=== PATIENT | male | born 1970 | race Caucasian/White ===

== ENCOUNTER 2023-01-29 08:58 | Emergency (ER) | payer BC, SELFPAY ==
--- NOTE | 2023-01-29 09:09 | ED.URI ---
HPI - URI/Sore Throat General Stated Complaint: SORE THROAT/EARACHE Time Seen by Provider: 01/29/23 09:39 Source: patient Mode of arrival: ambulatory Limitations: no limitations History of Present Illness HPI Narrative: patient is a 52-year-old male presenting with 3 days of right ear pain, sore throat, mild congestion, and intermittent nonproductive cough. Denies any fever, malaise reports strep is going around the office. Has not taken anything at home Related Data Allergies Allergy/AdvReac Type Severity Reaction Status Date / Time gluten Allergy Unknown stomach Verified 02/19/21 16:28 and diarrhea shellfish derived Allergy Unknown Unknown Verified 02/19/21 16:28 Review of Systems Review of Systems: CONSTITUTIONAL: Denies malaise, chills, sweats, or fever.? EYES: Denies visual changes, redness, or discharge.? ENT: Reports rhinorrhea, congestion, right otalgia and sore throat.? CARDIOVASCULAR: Denies chest pain, palpitations, or edema.? RESPIRATORY: Reports intermittent, nonproductive cough.? Denies dyspnea.? GASTROINTESTINAL: Denies abdominal pain, nausea, vomiting, diarrhea? SKIN: Denies rash or itching.? MUSCULOSKELETAL: Denies myalgia.? NEUROLOGIC: Denies headache All systems reviewed & are unremarkable except as noted in HPI and below PMFSH Family History Family History Father Diabetes mellitus Hypertension Mother Diabetes mellitus Hypertension Other Family history of osteoarthritis Social History Social History Smoking status: Never smoker Alcohol intake: current Comments At time of signature, agree with nursing past medical, surgical, social and family history. There is no relevant family history pertinent to the presenting complaint? Exam Narrative: GENERAL: Well-appearing, well-nourished, and in no acute distress.? HEAD: Normocephalic, atraumatic.? EYES: PERRLA, conjunctivae clear, and EOMI. No nystagmus.? ENT: Nares clear, turbinates pink, no rhinorrhea or epistaxis. Mucous membranes moist. TM pearly acuna with sharp light reflex bilaterally; no tragal tenderness. Oropharynx with erythema, without lesions. Tonsils not enlarged and with, mild exudate.? NECK: Supple. No lymphadenopathy. CHEST: No respiratory distress. Clear to auscultation.? No bony deformities, no asymmetry. Speaks in full sentences.? HEART: Regular rate and rhythm. No murmur heard. ? ABDOMEN: Soft, nontender, nondistended EXTREMITIES: Normal range of motion. No edema. ? SKIN: Warm, dry, no rash.? NEURO: Alert and oriented x3. No focal deficits. PSYCH: Normal mood and affect? Course Course Emergency Course: Patient is aware of diagnosis, understands and agrees to treatment plan.? Anticipatory guidance given.? Patient agrees to follow-up as directed and is aware of reasons to seek care at the emergency department.? Portions of this record may have been created with voice recognition software? Level of Care: [facility] Care Visit Vital Signs Vital signs: Reviewed MDM - URI/Sore Throat MDM Narrative Medical decision making narrative: Differential diagnosis considered: Nunez virus, strep pharyngitis, allergic rhinitis, upper respiratory tract infection, sinusitis, rhinosinusitis, nasopharyngitis. viral pharyngitis, otitis media, otitis externa, pneumonia, bronchitis, viral cough syndrome, viral syndrome, and influenza.? Exam findings show no acute concerns or changes; patient is non-toxic appearing and is in no distress. Patient is appropriate for outpatient treatment and follow-up.? Lab Data Attestation: I reviewed the patient's lab results. Discharge Plan Discharge Clinical Impression: Acute upper respiratory infection Patient Disposition: Home, Self-Care Condition: Stable Instructions: Upper Respiratory Infection (ED) Additional Instructions: Your rapid strep swab was negative today at [facility]
[2023-01-29 09:16] VITALS: BP 133/78; PULSE 77; RESP 16; TEMP 36.4; O2SAT 100
== END 2023-01-29 10:08 | disposition home or self-care (01) ==
PROVIDERS: Emergency Provider Nurse Practitioner Family; PCP Family Medicine
DX: J06.9 Acute upper respiratory infection, unspecified (principal); Z20.822 Contact with and (suspected) exposure to COVID-19
CPT/HCPCS: 87081; 87426; 87804; 87880; 99213; C9803; G0463

== ENCOUNTER 2023-06-16 13:58 | Outpatient (CLI) | payer BC, SELFPAY ==
--- NOTE | 2023-06-16 | ECHO_ITS ---
Patient Info Name: Michele Judd Age: 53 years : 1970 Gender: Male Ht: 72 in Wt: 230 lbs BSA: 2.33 m2 HR: 52 bpm BP: 150 / 77 mmHg Technical Quality: Fair Exam Date: 06/16/2023 3:25 PM Exam Location: [facility] Patient Status: Outpatient Admit Date: 06/16/2023 Staff Ordering Physician: MatheusCatrachito MD Water Inspector: Shayy Morales RDCS Attending Provider: Augusto, Catrachito Arredondo MD Referring Physician: Augusto JONES; Exam Type: CA echo doppler color flow Study Info Indications - murmur Complete two-dimensional, color flow and Doppler transthoracic echocardiogram is performed. Summary 1. Complete two-dimensional, color flow and Doppler transthoracic echocardiogram is performed. 2. Left ventricular chamber dimension is normal. 3. Left ventricular systolic function is normal, estimated at 60-65%. 4. The left ventricular diastolic function is grade II diastolic dysfunction. 5. E/e' 8 is minimally elevated. 6. Right ventricular chamber dimension is severely enlarged. 7. Right ventricular systolic function is moderately reduced. 8. Left atrial chamber dimension is mildly enlarged. 9. Right atrial chamber dimension is moderately enlarged. 10. There is mild aortic valve sclerosis. 11. There is trace mitral valve regurgitation. 12. No pulmonary hypertension, estimated pulmonary arterial systolic pressure is 32 mmHg. Left Ventricle E/e' 8 is minimally elevated. Left ventricular chamber dimension is normal. Left ventricular systolic function is normal, estimated at 60-65%. The left ventricular diastolic function is grade II diastolic dysfunction. Right Ventricle Right ventricular systolic function is moderately reduced. Right ventricular chamber dimension is severely enlarged. Left Atria Left atrial chamber dimension is mildly enlarged. Right Atria Right atrial chamber dimension is moderately enlarged. Aortic Valve The aortic valve is trileaflet. There is mild aortic valve sclerosis. There is no aortic valve stenosis. There is no aortic valve regurgitation. Pulmonic Valve There is no pulmonic regurgitation. Mitral Valve There is no mitral valve stenosis. There is trace mitral valve regurgitation. Tricuspid Valve There is no tricuspid valve regurgitation. No pulmonary hypertension, estimated pulmonary arterial systolic pressure is 32 mmHg. Pericardium/Pleural There is no pericardial effusion. Inferior Vena Cava Normal inferior vena cava with >50% collapse upon inspiration consistent with normal right atrial pressure, 5 mmHg. Aorta The aortic root size at the sinus of Valsalva is normal. Left Ventricular Outflow Tract Name Value Normal LVOT 2D LVOT Diameter 2.1 cm LVOT Doppler LVOT Peak Gradient 5 mmHg LVOT Mean Gradient 2 mmHg LVOT VTI 23 cm LVOT VTI/AV VTI Ratio 1.2 LVOT Stroke Volume 80 ml LVOT CO 15.2 l/min LVOT CI 6.5 l/min/m2 Pulmonic Valve Name
== END 2023-06-16 13:59 | disposition home or self-care (01) ==
LOC: ANHCARD 13:59
PROVIDERS: PCP Family Medicine; Visit Provider Family Medicine
DX: R01.1 Cardiac murmur, unspecified (principal)
CPT/HCPCS: 93306

== ENCOUNTER 2023-09-24 09:04 | Emergency (ER) | payer BC, SELFPAY ==
[2023-09-24 09:11] VITALS: BP 154/81; PULSE 68; RESP 16; TEMP 36.7; O2SAT 100
--- NOTE | 2023-09-24 09:32 | ED.BACK ---
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 Patient states he has been having spasms in his right lower back ever since. Patient states the pain radiates into his right buttocks. Patient denies any fevers, chills, incontinence of your her stool, saddle anesthesia, numbness, tingling, dysuria, chest pain, shortness of breath, or vomiting. Patient has been taking Advil at home. Related Data Allergies Allergy/AdvReac Type Severity Reaction Status Date / Time gluten Allergy Unknown stomach Verified 09/24/23 09:27 and diarrhea shellfish derived Allergy Unknown Unknown Verified 09/24/23 09:27 Review of Systems Review of Systems: CONSTITUTIONAL: Denies fever, chills, or sweats. EYES: Denies visual changes, redness, or discharge. ENT: Denies otalgia and sore throat CARDIOVASCULAR: Denies chest pain, palpitations, or edema. RESPIRATORY: Denies cough or dyspnea. GASTROINTESTINAL: Denies abdominal pain, nausea, vomiting, or diarrhea. GENITOURINARY: Denies dysuria or hematuria. SKIN: Denies rash or itching. MUSCULOSKELETAL: right lower back pain and spasms NEUROLOGIC: Denies headache, numbness, or weakness. Pertinent positives per HPI. [facility] Family History Family History Father Diabetes mellitus Hypertension Mother Diabetes mellitus Hypertension Other Family history of osteoarthritis Social History Social History (Reviewed 02/19/21 @ 16:28 by Francie Rodriguez [facility]) Smoking status: Never smoker Alcohol intake: current Comments At the time of my signature, I reviewed and agree with the nursing past medical, surgical, social, and family history. There is no relevant family history pertinent to the patient complaint. Exam Narrative: GENERAL: This is a well-nourished, well-developed patient, in no apparent distress. HEAD: normocephalic, atraumatic. EYES: Sclera clear/white. Vision is grossly intact. EARS: External ears normal, auditory canals clear and without drainage. Hearing grossly intact. NOSE: External nose normal with no obvious nasal discharge, nares without redness, no rhinorrhea. NECK: Neck supple, non-tender without lymphadenopathy, masses or thyromegaly. CARDIOVASCULAR: Regular rate RESPIRATORY: no respiratory distress SKIN: warm, intact with no suspicious lesions or rash, good texture and turgor. NEURO: awake, alert, and oriented to person, place and time. There were no obvious focal neurologic abnormalities. No leg weakness. EXTREMITIES: No clubbing, cyanosis, or edema. No joint tenderness, effusion, or edema noted. BACK: no spinal tenderness. Some tenderness noted to right lower, posterior hip. Pt moves slowly and steadily when standing and sitting. Course Course Level of Care: Express Care Visit Vital Signs Vital signs: Vital Signs Temperature 98.1 F 09/24/23 09:11 Pulse Rate 68 09/24/23 09:11 Respiratory Rate 16 09/24/23 09:11 Blood Pressure 154/81 H 09/24/23 09:11 Pulse Oximetry 100 09/24/23 09:11 Temperature 98.1 F 09/24/23 09:11 Pulse Rate 68 09/24/23 09:11 Respiratory Rate 16 09/24/23 09:11 Blood Pressure 154/81 H 09/24/23 09:11 Pulse Oximetry 100 09/24/23 09:11 reviewed MDM - Back Pain/Injury MDM Narrative Medical decision making narrative: Take steroids as directed. Take muscle relaxers as directed. Do not drive on muscle relaxers. May take 600 mg of ibuprofen (Advil, Motrin, Aleve) every 6 hours as needed with food. Follow up with lute packer or applier in 5-7 days. Go to the emergency dept with any new or worsening symptoms. Differential Diagnosis Differential diagnosis: Likely lumbar radiculopath
== END 2023-09-24 09:41 | disposition home or self-care (01) ==
PROVIDERS: Emergency Provider Nurse Practitioner Family; PCP Family Medicine
DX: M54.31 Sciatica, right side (principal)
CPT/HCPCS: 99213; G0463

== ENCOUNTER 2023-11-04 08:03 | Outpatient (CLI) | payer BC, SELFPAY ==
[2023-11-04 19:59] LABS: Alanine Aminotransferase 56 U/L (6-50); Albumin Level 4.5 g/dL (3.5-5.1); Alkaline Phosphatase 79 U/L (38-126); Anion Gap 10 mmol/L (8-16); Aspartate Amino Transferase 46 U/L (17-59); Bilirubin,Total 1.2 mg/dL (0.2-1.3); Blood Urea Nitrogen 14 mg/dL (9-20); Calcium 9.2 mg/dL (8.4-10.2); Carbon Dioxide 27 mmol/L (22-30); Chloride 105 mmol/L (98-107); Cholesterol 147 mg/dL (0-200); Estimated Glomerular Filt Rate > 60; Glucose 92 mg/dL (65-110); HDL Direct 26 mg/dL; Potassium 3.8 mmol/L (3.4-5.0); Sodium 142 mmol/L (137-145); Triglycerides 167 mg/dL (<150)
[2023-11-04 20:09] LABS: LDL Cholesterol Direct 95 mg/dL
[2023-11-04 20:17] LABS: Prostate Specific Antigen 0.9 ng/mL (< OR = 4.0)
== END 2023-11-04 08:04 | disposition home or self-care (01) ==
LOC: ANHGOSHLAB 08:05
PROVIDERS: PCP Family Medicine; Visit Provider Family Medicine
DX: Z13.220 Encounter for screening for lipoid disorders (principal); Z13.228 Encounter for screening for other metabolic disorders; Z12.5 Encounter for screening for malignant neoplasm of prostate
CPT/HCPCS: 36415; 80053; 80061; 84153; G0103

== ENCOUNTER 2024-03-04 08:30 | Outpatient (CLI) | payer BC, SELFPAY ==
--- NOTE | ~2024-03-04 | XR_ITS ---
Lumbosacral Spine: AP, oblique, and lateral views Clinical History: Pain Findings: The normal lordotic curve is maintained. The vertebral bodies and posterior elements are i ntact. The intervertebral disc spaces are preserved. The sacroiliac joints are normally outlined. Impression: No significant abnormality. Reviewed, dictated and finalized at [facility]. Impression: No significant abnormality.
== END 2024-03-04 08:31 ==
PROVIDERS: PCP Family Medicine; Visit Provider Family Medicine
DX: M54.50 Low back pain, unspecified (principal)
CPT/HCPCS: 72110

== ENCOUNTER 2024-03-30 15:02 | Outpatient (CLI) | payer BC, SELFPAY ==
--- NOTE | ~2024-03-30 | MR_ITS ---
EXAMINATION: MR lumbar spine wo con DATE: 03/30/2024 15:42 INDICATION: Low back pain. Right leg pain. TECHNIQUE: Magnetic resonance imaging (MRI) of the lumbar spine was performed without intravenous con trast. Sequences included sagittal T2-weighted FSE, sagittal T2-weighted FS FSE, sagittal T1-weighted FSE, and axial T2-weighted FSE. COMPARISON: Lumbar spine radiographs 03/04/24 FINDINGS: Bone alignment is normal. There is mild chronic anterior wedging of T12 vertebral body. The re is mildly decreased disc height at L4-L5. The distal spinal cord signal intensity is normal. The c onus medullaris is at L1. The following disc levels are specifically discussed: L1-L2: The disc does not extend beyond the endplate margin. There is mild bilateral facet joint osteo arthritis. There is no neural foraminal stenosis. There is no central canal stenosis. L2-L3: The disc does not extend beyond the endplate margin. There is mild bilateral facet joint osteo arthritis. There is no neural foraminal stenosis. There is no central canal stenosis. L3-L4: The disc does not extend beyond the endplate margin. There is mild bilateral facet joint osteo arthritis. There is no neural foraminal stenosis. There is no central canal stenosis. L4-L5: The disc is bulging with superimposed central extrusion. There is moderate bilateral facet maxx nt osteoarthritis. There is moderate bilateral neural foraminal stenosis. There is moderate central c anal stenosis. L5-S1: The disc is bulging and has an annular fissure. There is mild bilateral facet joint osteoarthr itis. There is mild left neural foraminal stenosis. There is mild central canal stenosis. IMPRESSION: 1. Moderate lumbar spondylosis. Reviewed, dictated and finalized at location A.
== END 2024-03-30 15:03 ==
LOC: GOSHIMG 15:03
PROVIDERS: PCP Family Medicine; Visit Provider Anesthesiology Pain Medicine
DX: M47.26 Other spondylosis with radiculopathy, lumbar region (principal)
CPT/HCPCS: 72148

== ENCOUNTER 2024-10-05 08:17 | Outpatient (CLI) | payer BC, SELFPAY ==
[2024-10-05 19:09] LABS: Alanine Aminotransferase 56 U/L (6-50); Albumin Level 4.8 g/dL (3.5-5.1); Alkaline Phosphatase 83 U/L (38-126); Anion Gap 12 mmol/L (4-12); Aspartate Amino Transferase 51 U/L (17-59); Bilirubin,Total 0.9 mg/dL (0.2-1.3); Blood Urea Nitrogen 16 mg/dL (9-20); Calcium 9.5 mg/dL (8.4-10.2); Carbon Dioxide 32 mmol/L (22-30); Chloride 101 mmol/L (98-107); Cholesterol 155 mg/dL (0-200); Estimated Glomerular Filt Rate > 60; Glucose 97 mg/dL (65-110); HDL Direct 29 mg/dL; Potassium 4.4 mmol/L (3.4-5.0); Sodium 145 mmol/L (137-145); Triglycerides 236 mg/dL (<150)
[2024-10-05 19:33] LABS: Prostate Specific Antigen 0.8 ng/mL (< OR = 4.0)
[2024-10-05 20:29] LABS: LDL Cholesterol Direct 86 mg/dL
== END 2024-10-05 08:18 | disposition home or self-care (01) ==
LOC: ANHGOSHLAB 08:19
PROVIDERS: PCP Family Medicine; Visit Provider Family Medicine
DX: Z12.5 Encounter for screening for malignant neoplasm of prostate (principal); Z13.220 Encounter for screening for lipoid disorders; Z13.228 Encounter for screening for other metabolic disorders
CPT/HCPCS: 36415; 80053; 80061; 84153; G0103

== ENCOUNTER → 2024-12-03 14:26 | Outpatient (REF) | payer BC, SELFPAY ==
--- OUTSIDE RECORDS SUMMARY | 2024-12-13 22:08 | XMS_ITS | Data Portability ---
Author Organization [facility] [employer], Main Office Address [address] [place] [address] Assessment No assessment recorded. Plan of Treatment Reminders Order Date Submit Date Provider Last Modified By Organization Details Last Modified Time Details Appointments None recorded. Lab lipid panel, serum [address] (Lab), [address] [place], [address], 3 08:18:11 CMP, serum or plasma 2022 023 [facility] (Lab), [address] [place], [address], 3 12:33:42 PSA, serum or plasma [address] (Lab), [address] [place], [address], 3 08:18:11 Referral otolaryngol ogist referral - Please call the pt to make an appt. Thank you 2022 023 [email or web address] Jorge Chandra MD, [address] [facility] , [address], [place], [address], 3 15:38:05 Procedures None recorded. Surgeries None recorded. Imaging US, doppler echocardiog kole, w/ color flow [email or web address] [place] [address] (Cardiology & Emg), [address] [facility] [address], [place], [address], 3 12:26:00 Medication Orders Medrol (Walker) 4 mg tablets in a dose pack 2022 023 [email or web address] [id number], [address] [facility], [place], [place], [id number], 3 14:44:03 Patient TargetsNo targets recorded. Patient InstructionsNo instructions recorded. Reason for Referral Medical Geneticist Referral fo r Dysfunction of right eustachian tube Please call the pt to make an appt. Thank you Referring Physician: Catrachito Jarvis, Family Medicine, Encounter Date: 03/27/2023 Results Created Date Observation Date Name Description Value Unit Range Abnormal Flag Note LastModifiedBy Organization Detail LastModifiedTime 07/17/20 21 07/18/2021 COMPR EHENS ISSAC METAB OLIC PANEL glucose 94 mg/dL 65-99 normal Fasti ng refer ence inter mireya Not Available [address] [place], [address], 07/18/2021 14:53:31 07/17/20 21 07/18/2021 COMPR EHENS ISSAC METAB OLIC PANEL urea nitrogen (BUN) 14 mg/dL 7-25 normal Not Available [facility] [employer] [facility] [address] [place], [address], 07/18/2021 14:53:31 07/17/20 21 07/18/2021 COMPR EHENS ISSAC METAB OLIC PANEL creatinine 1.26 mg/dL 0.70-1 .33 normal For patie nts >49 years of age, the refer ence limit for Creat inine is appro ximat mau 13% highe r for peopl e ident ified as Afric an-Am estelle n. Not Available [employer] [facility] [address] [place], [address], 07/18/2021 14:53:31 07/17/20 21 07/18/2021 COMPR EHENS ISSAC METAB OLIC PANEL eGFR non-afr. lao 65 mL/mi n/1.7 3m2 > or = 60 normal Not Available [address], [address], 07/18/2021 14:53:31 07/17/20 21 07/18/2021 COMPR EHENS ISSAC METAB OLIC PANEL eGFR 76 mL/mi n/1.7 3m2 > or = 60 normal Not Available [address], [address], 07/18/2021 14:53:31 07/17/20 21 07/18/2021 COMPR EHENS ISSAC METAB OLIC PANEL chloride 104 mmol/ L 98-110 normal Not Available [address], [address], 07/18/2021 14:53:31 07/17/20 21 07/18/2021 COMPR EHENS ISSAC METAB OLIC PANEL BUN/creatini ne ratio not applic able (calc ) 6-22 Not Available [address], [address], 07/18/2021 14:53:31 07/17/20 21 07/18/2021 COMPR EHENS ISSAC METAB OLIC PANEL sodium 141 mmol/ L 135-14 6 normal Not Available [address], [address], 07/18/2021 14:53:31 07/17/20 21 07/18/2021 COMPR EHENS ISSAC METAB OLIC PANEL potassium 4.6 mmol/ L 3.5-5. 3 normal Not Available [address], [address], 07/18/2021 14:53:31 07/17/20 21 07/18/2021 COMPR EHENS ISSAC METAB OLIC PANEL carbon dioxide 30 mmol/ L 20-32 normal Not Available [address], [address], 07/18/2021 14:53:31 07/17/20 21 07/18/2021 COMPR EHENS ISSAC METAB OLIC PANEL calcium 9.7 mg/dL 8.6-10 .3 normal Not Available [address], [address], 07/18/2021 14:53:31 07/17/20 21 07/18/2021 COMPR EHENS ISSAC METAB OLIC PANEL protein, total 7.4 g/dL 6.1-8. 1 normal Not Available [address], [address], 07/18/2021 14:53:31 07/17/20 21 07/18/2021 COMPR EHENS ISSAC METAB OLIC PANEL albumin 4.7 g/dL 3.6-5. 1 normal Not Available [address], [address], 07/18/2021 14:53:31 07/17/20 21 07/18/2021 COMPR EHENS ISSAC METAB OLIC PANEL globulin 2.7 g/dL_ (calc ) 1.9-3. 7 normal Not Available [address], [address], 07/18/2021 14:53:31 07/17/20 21 07/18/2021 COMPR EHENS ISSAC METAB OLIC PANEL albumin/glob ulin ratio 1.7 (calc ) 1.0-2. 5 normal Not Available [address], [address], 07/18/2021 14:53:31 07/17/20 21 07/18/2021 COMPR EHENS ISSAC METAB OLIC PANEL bilirubin, total 0.7 mg/dL 0.2-1. 2 normal Not Available [address], [address], 07/18/2021 14:53:31 07/17/20 21 07/18/2021 COMPR EHENS ISSAC METAB OLIC PANEL alkaline phosphatase 68 U/L 35-144 normal Not Available [address] [address] [place], [address], 07/18/2021 14:53:31 07/17/20 21 07/18/2021 COMPR EHENS ISSAC METAB OLIC PANEL AST 25 U/L 10-35 normal Not Available [address] [address] [place], [address], 07/18/2021 14:53:31 07/17/20 21 07/18/2021 COMPR EHENS ISSAC METAB OLIC PANEL ALT 38 U/L 9-46 normal Not Available [address] [address] [place], [address], 07/18/2021 14:53:31 07/17/20 21 07/18/2021 HEPAT ITIS PANEL , ACUTE W/REF JOS TO CONFI RMATI ON hepatitis B core antibody (IgM) non-re active non-re active normal Not Available [address] [address] [place], [address], 07/18/2021 14:53:29 07/17/20 21 07/18/2021 HEPAT ITIS PANEL , ACUTE W/REF JOS TO CONFI RMATI ON hepatitis A IgM non-re active non-re active normal For addit ional infor yinka charles e refer to http: //[facility] jossie marie.jose stdia gnost ics.c om/fa q/FAQ (This link is being provi ded for infor angela herr/ lata bass ses only. ) Not Available [address] [address] [place], [address], 07/18/2021 14:53:29 07/17/20 21 07/18/2021 HEPAT ITIS PANEL , ACUTE W/REF JOS TO CONFI RMATI ON hepatitis B surface antigen non-re active non-re active normal Not Available [facility]. [place] [address], [place], [address], 07/18/2021 14:53:29 07/17/20 21 07/18/2021 HEPAT ITIS PANEL , ACUTE W/REF JOS TO CONFI RMATI ON hepatitis C antibody non-re active non-re active normal Not Available [facility] [address], [place], [address], 07/18/2021 14:53:29 07/17/20 21 07/18/2021 HEPAT ITIS PANEL , ACUTE W/REF JOS TO CONFI RMATI ON index 0.02 <1.00 normal HCV antib shani was non-r eacti ve. There is no labor atory evide nce of HCV infec tion. In most cases , no furth er actio n is requi red. Howev er, if recen t HCV expos ure is suspe cted, a test for HCV RNA (test code 46149 ) is sugge sted. For addit ional infor angela marie pleas e refer to http: //[facility] jossie whitaker stdia gnost ics.c om/fa q/FAQ 22v1 (This link is being provi ded for infor angela herr/ educelo maxwell purpo ses only. ) Not Available [facility] [address], [place], [address], 07/18/2021 14:53:29 07/17/20 21 07/18/2021 LIPID PANEL , STAND ESME cholesterol, total 148 mg/dL <200 normal Not Available [facility] [address], [place], [address], 07/18/2021 14:53:28 07/17/20 21 07/18/2021 LIPID PANEL , STAND ESME HDL cholesterol 35 mg/dL > or = 40 low Not Available [facility] [address] [address] [place], [address], 07/18/2021 14:53:28 07/17/20 21 07/18/2021 LIPID PANEL , STAND ESME triglyceride s 144 mg/dL <150 normal Not Available [facility] [address] [place], [address], 07/18/2021 14:53:28 07/17/20 21 07/18/2021 LIPID PANEL , STAND ESME LDL-choleste rol 89 mg/dL _(kaushik c) normal Refer ence range : <100 Jhony able range <100 mg/dL for prima ry preve ntion ; <70 mg/dL for patie nts with CHD or diabe tic patie nts with > or = 2 CHD risk facto rs. LDL-C is now calcu lated using the Sugey n-Hop kins thaisu debra n, which is a valid ated novel phoebeo d chinyere akins tracy r accur acy than the Fried thelma equat ion in the estim ation of LDL-C . Sugey marie SS et al. AALIYAH. 2013; 310(1 9): 2061- 2068 (http ://ed ucati on.Qu Omar PlayCafe. com/f aq/FA Q164) Not Available [facility] [address] [place], [address], 07/18/2021 14:53:28 07/17/20 21 07/18/2021 LIPID PANEL , STAND ESME chol/HDLC ratio 4.2 (calc ) <5.0 normal Not Available [facility] [address], [place], [address], 07/18/2021 14:53:28 07/17/20 21 07/18/2021 LIPID PANEL , STAND ESME non HDL cholesterol 113 mg/dL _(kaushik c) <130 normal For patie nts with diabe maya plus 1 major ASCVD risk facto r, treat ing to a non-H DL-C goal of <100 mg/dL (LDL- C of <70 mg/dL ) is consi aded a thera peuti c optio n. Not Available [facility] [address] [place], [address], 07/18/2021 14:53:28 03/24/20 23 03/24/2023 COMPR EHENS ISSAC METAB OLIC PANEL sodium 143 mmol/ L 137-14 5 Not Available [facility] (Lab) [address] [facility] [place], [address], 03/24/2023 12:33:42 03/24/20 23 03/24/2023 COMPR EHENS ISSAC METAB OLIC PANEL potassium 4.4 mmol/ L 3.5-5. 1 Not Available [facility] (Lab) [address] [place], [address], 03/24/2023 12:33:42 03/24/20 23 03/24/2023 COMPR EHENS ISSAC METAB OLIC PANEL chloride 105 mmol/ L 98-107 Not Available [facility] (Lab) [address] [place], [address], 03/24/2023 12:33:42 03/24/20 23 03/24/2023 COMPR EHENS ISSAC METAB OLIC PANEL carbon dioxide 28 mmol/ L 22-30 Not Available [facility] (Lab) [address] [place], [address], 03/24/2023 12:33:42 03/24/20 23 03/24/2023 COMPR EHENS ISSAC METAB OLIC PANEL anion gap 14.4 mmol/ L 14-22 Not Available [facility] (Lab) [address] [place], [address], 03/24/2023 12:33:42 03/24/20 23 03/24/2023 COMPR EHENS ISSAC METAB OLIC PANEL glucose 87 mg/dL 70-99 Not Available [facility] (Lab) [address] [place], [address], 03/24/2023 12:33:42 03/24/20 23 03/24/2023 COMPR EHENS ISSAC METAB OLIC PANEL BUN 18 mg/dL 8-19 Not Available [facility] (Lab) [address] [place], [address], 03/24/2023 12:33:42 03/24/2003/24/2023 COMPR EHENS ISSAC METAB OLIC PANEL creatinine 1.13 mg/dL 0.66-1 .25 Not Available [facility] (Lab) [address] [place], [address], 03/24/2023 12:33:42 03/24/20 23 03/24/2023 COMPR EHENS ISSAC METAB OLIC PANEL GFR >60 Refer ence Range : [place] ge GFR Healt hy Adult : >60 mL/mi n/1.7 3 m2 Chron ic Kidne y Disea se: 15-60 mL/mi n/1.7 3 m2 Kidne y Failu re: <15/m L/min /1.73 m2 www.n iddk. nih.g ov The MDRD study equat ion has not been valid ated in child desiree <18 years of age; pregn ant women ; the elder ly >85 years of age; or in some racia l or ethni c subgr oups, such as Hisin nics. Outsi de the valid ated joe eters , estim ated GFR is less accur ate, requi ring clini kaushik judgm ent on a case- by-ca se basis . Clini kaushik inter preta tion for other races and ages must be made by the clini kyung. The MDRD study equat ion has not been valid ated for the evalu ation of serum creat inine relat ed to nutri fabiola l statu s or medic ation usage . For perso ns <18 years of age, a pedia tric GFR calcu lator is avail able on the NKF websi te: https ://gwen bird.drew meadows/pr ofess ional s/kdo qi/gf r_cal culat or Not Available [facility] (Lab) [address] [place], [address], 03/24/2023 12:33:42 03/24/2003/24/2023 COMPR EHENS ISSAC METAB OLIC PANEL alkaline phosphatase 74 U/L 38-126 Not Available [facility] (Lab) [address] [place], [address], 03/24/2023 12:33:42 03/24/20 23 03/24/2023 COMPR EHENS ISSAC METAB OLIC PANEL alanine aminotransfe rase 51 U/L 0-50 high Not Available [facility] (Lab) [address] [place], [address], 03/24/2023 12:33:42 03/24/20 23 03/24/2023 COMPR EHENS ISSAC METAB OLIC PANEL aspartate aminotransfe rase 34 U/L 15-46 Not Available [facility] (Lab) [address] [place], [address], 03/24/2023 12:33:42 03/24/20 23 03/24/2023 COMPR EHENS ISSAC METAB OLIC PANEL bilirubin, total 0.80 mg/dL 0.20-1 .30 Not Available [facility] (Lab) [address] [place], [address], 03/24/2023 12:33:42 03/24/20 23 03/24/2023 COMPR EHENS ISSAC METAB OLIC PANEL calcium 9.5 mg/dL 8.4-10 .2 Not Available [facility] (Lab) [address] [place], [address], 03/24/2023 12:33:42 03/24/20 23 03/24/2023 COMPR EHENS ISSAC METAB OLIC PANEL total protein 8.2 g/dL 6.3-8. 2 Not Available [facility] (Lab) [address] [place], [address], 03/24/2023 12:33:42 03/24/20 23 03/24/2023 COMPR EHENS ISSAC METAB OLIC PANEL albumin 4.6 g/dL 3.4-5. 0 Not Available [facility] (Lab) [address] [place], [address], 03/24/2023 12:33:42 03/24/20 23 03/24/2023 COMPR EHENS ISSAC METAB OLIC PANEL globulin 3.6 g/dL 2.6-4. 2 Not Available [facility] (Lab) [address] [place], [address], 03/24/2023 12:33:42 03/24/20 23 03/24/2023 COMPR EHENS ISSAC METAB OLIC PANEL A/G ratio 1.3 ratio 1.0-2. 0 Not Available [facility] (Lab) [address] [place], [address], 03/24/2023 12:33:42 03/24/20 23 03/24/2023 PSA, TOTAL PSA, total 0.85 NG/mL 0.00-4 .00 Not Available [facility] (Lab) [address] [place], [address], 03/24/2023 13:01:53 06/16/2006/16/2023 US, doppl er echoc ardio gram, w/ color flow No observ ation record ed. [address], [place], [address], 06/16/2023 18:43:25 Result Notes None recorded. Problems Name Problem SNOMED Code Status Onset Date Resolution Date Notes Provider Name and Address Organization Details Recorded Time Serous otitis media 33857382 Active 2022 Catrachito Jarvis MD [address], [place], [address], [employer] 3 15:07:50 Nocturia 845517524 Active 2022 Catrachito Jarvis MD [address], [place], [address], [employer] 3 15:10:32 Heart murmur 87771548 Active 2022 Catrachito Jarvis MD [address] [facility], [place], [address], [facility] 3 14:55:08 Dysfunction of right eustachian tube 6195072583694 101 Active 2022 Catrachito Jarvis MD [address] [facility], [facility] [address], [place], [address], [facility] 3 14:57:17 Problem Notes None recorded. Procedures Surgical History None recorded. Imaging Results Imaging Date Name Status LastModified by Organiz ation Details LastModified Time 06/16/2023 US, doppler echocardiogr am, w/ color flow completed [address] [place] [address], [address], 06/16/2023 18:43:25 Procedure Notes None recorded. Medical Equipment None Reported. Allergies Allergen ID Allergen Name Allergen Category Reaction Reaction Severity Criticality Documentation Date Start Date Code Code System Note Provider Name and Address Organization Details Recorded Time 03816 shellfish derived food,medi cation Not available Not available Not available 01/29/2023 Not Available [facility] 3 23:32:08 51701 wheat gluten extract food Not available Not available Not available 01/29/2023 39979 81 RxNorm Not Available [facility] 3 23:32:08 Medications Name Sig Start Date Stop Date Status Note LastModified by Organization Details LastModified Time triamcinolo ne acetonide 0.1 % topical cream APPLY TOPICALLY TO THE AFFECTED AREA TWICE DAILY 03/20 completed Not Available Not Available Not Available methylpredn isolone 4 mg tablets in a dose pack FOLLOW PACKAGE DIRECTION S 03/27 completed Not Available Not Available Not Available Vitals Date Recorded Body mass index (BMI) Body height Oxygen saturation Oxygen saturation in Arterial blood by Pulse oximetry Heart rate Body temperature Body weight Systolic blood pressure Diastolic blood pressure Provider Name and Address Organization Details Last Updated DateTime 1 31.2 kg/m2 182.88 cm 97 % 97 % 72 /min 97.5 [degF] 375087. 25 g 136 mm[Hg] 100 mm[Hg] Not Available [facility] 3 23:30:16 Date Recorded Body height Body mass index (BMI) Body weight Body temperature Heart rate Oxygen saturation Oxygen saturation in Arterial blood by Pulse oximetry Systolic blood pressure Diastolic blood pressure Provider Name and Address Organization Details Last Updated DateTime 3 182.88 cm 33 kg/m2 099110. 95 g 97.2 [degF] 78 /min 98 % 98 % 160 mm[Hg] 100 mm[Hg] Amy Dominique [facility] [employer] [facility] [employer] [facility] 3 14:53:32 Date Recorded Body height Body mass index (BMI) Body weight Body temperature Heart rate Oxygen saturation Oxygen saturation in Arterial blood by Pulse oximetry Systolic blood pressure Diastolic blood pressure Provider Name and Address Organization Details Last Updated DateTime 3 182.88 cm 32.4 kg/m2 594311. 58 g 97.9 [degF] 68 /min 98 % 98 % 140 mm[Hg] 100 mm[Hg] Amy Dominique Elo DE [employer] [facility] [employer] [facility] 3 14:45:23 Social History Question Answer Notes LastModified by [employer] ion Details LastModified Time Tobacco Smoking Status Never Smoker Not Available Critical access hospital 01/29/2023 23:29:08 In The 14 Days Before Symptom Onset, Have You Had Close Contact With A Laboratory-confirm ed COVID-19 While That Case Was Ill? No [id number] Information not available 01/29/2023 In The 14 Days Before Symptom Onset, Have You Had Close Contact With A Person Who Is Under Investigation For COVID-19 While That Person Was Ill? No [id number] Information not available 01/29/2023 Have You Recently Traveled Abroad? No [id number] Information not available 01/29/2023 Sex: Unknown Functional Status None recorded. Mental Status None recorded. Family History Relationship Description Onset Age of this Age Resolved Age Notes LastModified by Organization Details LastModified Time Father Diabetes mellitus [id number] Not available 01/29/2023 23:29:24 Father Hypertensive disorder [id number] Not available 01/29/2023 23:29:24 Mother Diabetes mellitus [id number] Not available 01/29/2023 23:29:24 Mother Hypertensive disorder [id number] Not available 01/29/2023 23:29:24 Maternal Grandfather Heart disease [id number] Not available 01/29/2023 23:29:24 Medical History Condition Response BLINDNESS N RHEUMATIC FEVER N KIDNEY STONES N BLADDER PROBLEMS N MRSA N OTHER # 1 N POLIO N LUNG DISEASE/DISORDER N HISTORY OF DRUG ABUSE N RADIATION / CHEMOTHERAPY N COPD N Other # 2 N BLOOD DISEASES N SURGERY N EAR OR HEARING PROBLEMS N MUMPS N SHINGLES N FEMALE PROBLEMS / INFECTIONS N DEPRESSION (INCLUDING POST ) N BOWEL PROBLEMS N STROKE/TIA N THYROID DISEASE N ULCERS N BENIGN PROSTATIC HYPERPLASIA N MEASLES N CERVICALGIA N TB SKIN TEST N HYPOTENSION N MYOCARDIAL INFARCTION N PARAPELGIA N OBESITY N GERD/NAUSEA N ANEURYSM N URINARY/BLADDER/KIDNEY PROBLEMS N CORONARY ARTERY DISEASE (CAD) N MENIERE'S DISEASE N ADDICTION CONCERNS N ENDOMETRIOSIS N USE OF BLOOD THINNERS N SKIN PROBLEMS Y EMPHYSEMA N GASTROINTESTINAL DISORDER N MUSCLE,JOINT OR BONE PROBLEMS N GASTROINTESTINAL BLEEDING N BLOOD CLOTS N ASTHMA N CATARACTS N ERECTILE DYSFUNCTION N GI PROBLEMS N CHF N Low Testosterone N NEUROPATHY N INFERTILITY N AIDS/HIV N FRACTURES N CHEMOTHERAPY / RADIATION N VISION/EYE PROBLEMS N LIVER DISEASE N MALE HYPOGONADISM N HYPERTENSION N TOURETTE'S N ANXIETY DISORDER N BLOOD TRANSFUSION N ANEMIA/BLOOD DISORDER N CHRONIC EAR INFECTIONS N BRONCHITIS N TUBERCULOSIS N GLAUCOMA N FOOT PROBLEM N DIVERTICULITIS N SLEEP APNEA N CHICKENPOX N ALLERGIES/HAYFEVER N INFECTIOUS DISEASE N PROSTATE N HEART ARRHYTHMIA N INSOMNIA N HIGH CHOLESTEROL / HYPERLIPIDEMIA N HYPERTHYROIDISM N EYE PROBLEMS N EATING DISORDER N EDEMA N CHRONIC PAIN SYNDROME N CONSTIPATION N CAROTID BLOCKAGE N BACK / NECK PROBLEMS N HAVE YOU BEEN HOSPITALIZED OR SEEN IN [facility] IN THE PAST YEAR ? N ATHEROSCLEROSIS N BREAST PROBLEMS N DIALYSIS N ECZEMA N FIBROMYALGIA N OSTEOPOROSIS N ARTHRITIS N NO SIGNIFICANT PAST MEDICAL HISTORY N APPENDICITIS N DIABETES, TYPE N BAD TEETH N HEARTBURN / REFLUX N ADD/ADHD N AUTISM SPECTRUM DISORDER (ASD) N HEPATITIS / LIVER DISEASE N PULMONARY DISEASE N GOUT N SLEEP DISORDER N ALZHEIMER'S DISEASE N PAIN N HERPES N DEMENTIA N SEIZURES/EPILEPSY N HEADACHES/MIGRAINES N VASCULAR DISEASE N PACEMAKER N DIZZINESS N KIDNEY DISEASE N HEART DISEASE/HEART PROBLEMS N SCARLET FEVER N MULTIPLE SCLEROSIS N MENTAL DISORDER/ILLNESS N DEVELOPMENTAL OR BEHAVIORAL DISORDERS N CARDIAC ARRHYTHMIA N CANCER: SPECIFY N PNEUMONIA N Gall Stones N ATRIAL FIBRILLATION N PULMONARY EMBOLISM N AUTOIMMUNE DISEASE N Past Encounters Encounter ID Performer Location Encounter Start Date Encounter Closed Date Diagnosis/Indication Diagnosis SNOMED-CT Code Diagnosis ICD10 Code Diagnosis Note [id number] [facility] [place] [address] [facility] [place] [address] 06/28/2021 00:00:00 06/28/2021 21:15:56 [id number] Catrachito Jarvis MD [facility] [place] [address] [facility] [address] [place] [place] [address] 03/20/2023 14:46:47 03/20/2023 15:12:10 Serous otitis media 45204031 H65.91 Valsalva and sudafed and medrol dose pack. Hyperlipid emia screening 054680592 Z13.220 Nocturia 285419154 R35.1 [id number] Catrachito Jarvis MD [facility] [place] [address] [facility] [address] [place] [address] 03/27/2023 14:41:48 03/27/2023 15:04:15 Heart murmur 48252032 R01.1 Dysfunctio n of right eustachian tube 0615545304 983767 H69.91 Adult heal th examination 963646524 Z00.00 Health Concerns Section Related Observation LastModified by Organization Detai ls LastModified Time None Recorded Concern Status LastModified by Organization Details LastModified Time None Recorded Advance Directives Directive None Recorded Payers Encounter Date Sequence Insurance Name Policy Number Policy Bee Covered Member ID Bee Member ID Guarantor Name 03/20/2023 1 [place] [id number] 3 Michele Judd [id number] Michele Judd 03/27/2023 1 [place] [id number] 3 Michele Judd [id number] Michele Judd Notes Date Note Type Note Provider Name and Address Organization Details Recorded Time 03/20/2023 text/html Here today c/o tooth ache and Friday got bad. Tried anbesol and took sudafed. Feels congested in the right ear and it is congested. It feels a little clogged. Has ringing going on but no hearing loss. No other problems other than allergies. Takes prerna and this helps. Catrachito Jarvis MD [address], [facility] [address], [place], [address], [facility] [employer] 03/20/2023 18:31:39 03/27/2023 text/html Here today for annual physical. UTD with colon cancer screening not due for 6 years. Having clogged feeling of ear. This comes often. Velasquez sob or chest pains. Occasionally will get light headed. Catrachito Jarvis MD [address], [facility] [address], [place], [address], [employer] [facility] [employer] 03/28/2023 06:22:03
--- OUTSIDE RECORDS SUMMARY | 2024-12-13 22:08 | XMS_ITS | Continuity of Care Document ---
Author Organization [facility] up Address [address] [place] [address] Care Team Providers Care Secondary History Teacher Name Role Phone Justen Peña DO Primary Care Provider Justen Peña DO Attending Provider [phone] Care Teams Patient Care Team Team Status: Active Member Role Status Dates Justen Peña DO Primary Care Provider Active Patient Care Team Team Status: Inactive Member Role Status Dates Justen Peña DO Primary Care Provid er, Attending Provider, Referring Provider Active Visit Care Team Team Status: Inactive Member Role Status Dates Justen Peña DO Primary Care Provider, Attending Provider Active Chief Complaint and Reason for Visit Chief Complaint Admit Date Encounter for screening for lipid disord er Encount October 05, 2024 8:17am Wellness Exam October 07, 2024 3 :09pm Reason for Visit Admit Date Encounter for wellness examination Novem 2023 3:09pm Reason for Referral Referring Provider Name Referring Provider Address Referring Provider Phone Referral Date Requested Appointment Date Referral Reason Justen Peña [address] [facility] [place] [address] [facility] [address] Work Phone: October 07, 2024 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 October 07, 2024 Z12.11 - Encounter for screening for malignant neoplasm of colon,Z12.12 - Encounter for screening for malignant neoplasm of rectum October 07, 2024 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 Yes A pril 2023 7:13am Has Lack of Trans Kept You F rom Med Appts or Getting Meds? No March 04, 2024 7:13am In Past 12 Months, Were You Worried Your Food Would Run Out? Never True March 04, 2024 7:13a m What is Your Housing Situati on Today? I Have Housing March 04, 2024 7:13am Gender Identity (if Verbaliz ed by the Patient) Male March 04, 2024 7:13am Sexual Orientation (if Verba lized by the Patient) Straight or Heterosexual March 04, 2024 7:13am Are You Worried That in Next 2 Mo, You Won't Have Housing? No March 04, 2024 7:13am Do You Have Trouble Paying Y our Heating Or Electricity Bill? No March 04, 2024 7:13am Do You Have Trouble Paying F or Medicines? No March 04, 2024 7:13am Are You Currently Unemployed and Looking for Work? No March 04, 2024 7:13am Highest Level of Education Completed Bachelor's Degree March 04, 2024 7:13am Do You Have Trouble With Childcare/Care of a Family Member? No March 04, 2024 7:1 3am alcohol intake current March 04, 2024 7:13am Patient Sex Male October 07 3:56pm Assigned Sex Male May 09 9 Family History Relationship Condition Age at Onset Recorded Date/T lor Not Specified Family history of osteoarthritis Unknown father Diabetes mellitus Unknown Hypertension Unknown mother Diabetes mellitus Unknown Hypertension Unknown Problems Active Problems Medical Problem Onset Date Status Pityriasis rosea Unknown Active Inactive/Resolved Problems Medical Problem Onset Date Status Sciatica Unknown Resolved Acute upper respiratory infection Unknown Resolved Medications Medication Status Dose Units Route Directions Qty Days St art Date Stop Date End Date Instructions Adherence Multivit,Ca l,Mn-Folic- D3-Lycop (One A Day Men Complete) 240-25-300 mcg tablet Active TABLET PO Novemb er 2022 12:00a m Amlodipine 5 mg tablet Active 5 MG PO DAILY 90 Octobe r 2023 7:24am Immunizations Immunization Event Date Not Given Reason Dose Number Rfid Manager Lot Number Vaccine Information Statement (VIS) Detail Administration Location Influenza, inactivated quadrivalent July 22, 2011 SARS-COV-2 (COVID-19) Pfizer February 15, 2021 Tetanus, Diphtheria, Pertussis (Tdap) May 25, 2013 Relevant Diagnostic Tests and/or Laboratory Data Laboratory Results Test Date/Time Result Interpretation Reference Range Result Comment Performing Site Sodium Level October 05, 2024 8:25am 145 mmol/L 137-145 [facility] [id number] [address] [place] [address] Potassium Level October 05, 2024 8:25am 4.4 mmol/L 3.4-5.0 [facility] [id number] [address] [place] [address] Chloride Level October 05, 2024 8:25am 101 mmol/L 98-107 [facility] [id number] [address] [place] [address] Carbon Dioxide Level October 05, 2024 8:25am 32 mmol/L Above high normal -30 [facility] [id number] [address] [place] [address] Anion Gap October 05, 2024 8:25am 12 mmol/L 4-12 [facility] [id number] [address] [place] [address] 31093 Blood Urea Nitrogen October 05, 2024 8:25am 16 mg/dL 9-20 [facility] [id number] [address] [place] [address] Creatinine October 05, 2024 8:25am 1.20 mg/dL 0.7-1.3 [facility] [id number] [address] [place] [address] Estimat Glomerular Filtration Rate October 05, 2024 8:25am > 60 >59 > OR = 60 ml/min/1.73 square metersThe MDRD formula used to calculate the eGFR result has not been validated in patients > 70 years of age. [facility] [id number] [address] [place] [address] Estimated Creatinine Clearance Calc October 05, 2024 8:25am Not Reportable [facility] [id number] [address] [place] [address] Glucose Level October 05, 2024 8:25am 97 mg/dL 65-110 [facility] [id number] [address] [place] [address] 98651 Calcium Level October 05, 2024 8:25am 9.5 mg/dL 8.4-10.2 [facility] [id number] [address] [place], [place] [address] Total Bilirubin October 05, 2024 8:25am 0.9 mg/dL 0.2-1.3 [facility] [id number] [address] [place] [address] Aspartate Amino Transf (AST/SGOT) October 05, 2024 8:25am 51 U/L 17-59 [facility] [id number] [address] [place], [place] [address] Alanine Aminotransfer ase (ALT/SGPT) October 05, 2024 8:25am 56 U/L Above high normal 6-50 [facility] [id number] [address] [place], [place] [address] Total Protein October 05, 2024 8:25am 9.0 g/dL Above high normal 6.3-8.2 [facility] [id number] [address] [place], [place] [address] Albumin October 05, 2024 8:25am 4.8 g/dL 3.5-5.1 [facility] [id number] [address] [place], [place] [address] Triglycerides Level October 05, 2024 8:25am 236 mg/dL Above high normal <150 [facility] [id number] [address] [place], [place] [address] Cholesterol Level October 05, 2024 8:25am 155 mg/dL 0-200 [facility] [id number] [address] [place], [place] [address] LDL Cholesterol Direct October 05, 2024 8:25am 86 mg/dL <130 mg/dl [id number] 9 mg/dl Borderline High Risk >160 mg/dl High Risk [facility] [id number] [address] [place], [place] [address] HDL Cholesterol Direct October 05, 2024 8:25am 29 mg/dL Expected Range > 35 mg/dl [facility] [id number] [address] [place], [place] [address] Alkaline Phosphatase October 05, 2024 8:25am 83 U/L 38-126 [facility] [id number] [address] [place], [place] [address] Prostate Specific Antigen October 05, 2024 8:25am 0.8 ng/mL <4.0 Rfid Manager: [employer] od: ImmunoassayPSA results determined by assays using different manufacturers or methods may not be comparable. [facility] [id number] [address] [place] [address] [place] [address] Vital Signs Vital Reading Result Reference Range Collection Date/Time Height 71 [in_i] October 07, 024 3:21pm Weight 109.76 kg October 07, 024 3:21pm Heart Rate 60 /min 60-100 October 07, 2 024 3:21pm Respiratory rate 16 /min 12-October 3:21pm Oxygen saturation by Pulse oximetry 100 % 90-100 October 07, 2024 3 :21pm BP Systolic 165 mm[Hg] 100-140 October 07, 2 024 3:21pm BP Diastolic 73 mm[Hg] 60-90 October 07, 024 3:21pm BMI (Body Mass Index) 33.7 kg/m2 [facility]:21[facility] Insurance Providers Guarantor Michele Judd Address [address] [place] [address] [place] [address] Contact Info. Home Phone: Payer Policy Id Coverage Id Subscriber's Name Subscriber Id Effective Date Expiration Date [place] BC [id number] SM [id number] Michele Judd [id number] [place] [id number] Michele Judd [id number] [place] [id number] SM [id number] Michele Judd [id number] Self Pay Self N/A Encounters Encounter Location(s) Arrival/Admit Date Discharge/Depart Date Provider(s) Departed [facility] [place] October 05, 2024 8:17am October 05, 2024 8:18am Justen Peña DO Departed Physician/Prov ider Office Visit [facility] October 07, 2024 3:09pm October 07, 2024 3:56pm Justen ePña DO Recent Diagnosis Onset Date Admit Date Encounter for wellness examination Unknown October 07, 2024 3:09pm Mental Status Observation Response Date Recorded oriented to person Yes October 07, 2024 3:42pm oriented to place Yes October 07, 2024 3:42pm oriented to time Yes October 07 3:42pm Assessments Diagnosis Onset Date Resolution Status Admit Date Encounter for wellness examination noneactive October 07 3:09pm Plan of Treatment Author Justen Peña [facility] Authored October 07, 2024 3 :42pm The [place] Task Force for Preven tive Healthcare recommendations and how they relate to the patient on an individual basis were discussed. Management of all chronic problems were discussed. Adult immunization recommendations were reviewed. Personal risk factors for chronic disease were pointed out and a plan to reduce those risks was outlined. The importance of annual eye exams and hearing tests were discussed. A recommend schedule of all preventive health procedures based on age and gender was outlined and a written copy was offered to the patient. The importance of regular exams, daily exercise and and healthy diet to fight against chronic disease and add to life span was reviewed. Lastly screening for depression, personal safely and functional ability was reviewed. 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
== END ==
LOC: ANHLAB 14:26
PROVIDERS: PCP Family Medicine; Visit Provider Physician Assistant Surgical
DX: D23.4 Other benign neoplasm of skin of scalp and neck (principal)
CPT/HCPCS: 88305

== ENCOUNTER 2025-05-10 07:55 | Outpatient (CLI) | payer BC, SELFPAY ==
--- OUTSIDE RECORDS SUMMARY | 2025-05-10 07:59 | XMS_ITS | Data Portability ---
Author Organization [facility], Main Office Address [address] [place] [address] Assessment No assessment recorded. Plan of Treatment Reminders Order Date Submit Date Provider Last Modified By Organization Details Last Modified Time Details Appointments None recorded. Lab lipid panel, serum [address] (Lab), [address] [place], [address], 3 08:18:11 CMP, serum or plasma 2022 023 [facility] (Lab), [address] [place], [address], 3 12:33:42 PSA, serum or plasma [address] (Lab), [address] [place], [address], 3 08:18:11 Referral otolaryngol ogist referral - Please call the pt to make an appt. Thank you 2022 023 [email or web address] Jorge Chandra MD, [address] [facility] , [address], [place], [address], 3 15:38:05 Procedures None recorded. Surgeries None recorded. Imaging US, doppler echocardiog kole, w/ color flow [email or web address] [place] [address] (Cardiology & Emg), [address] [facility] [address], [place], [address], 3 12:26:00 Medication Orders Medrol (Walker) 4 mg tablets in a dose pack 2022 023 [email or web address] [id number], [address] [facility], [place], [place], [id number], 3 14:44:03 Patient TargetsNo targets recorded. Patient InstructionsNo instructions recorded. Reason for Referral Extension Supervisor Referral fo r Dysfunction of right eustachian [...] ng refer ence inter mireya Not Available [address] [address] [place], [address], 07/18/2021 14:53:31 07/17/20 21 07/18/2021 COMPR EHENS ISSAC METAB OLIC PANEL urea nitrogen (BUN) 14 mg/dL 7-25 normal Not Available [facility] [address] [place], [address], 07/18/2021 14:53:31 07/17/20 21 07/18/2021 COMPR EHENS ISSAC METAB OLIC PANEL creatinine 1.26 mg/dL 0.70-1 .33 normal For patie nts >49 years of age, the refer ence limit for Creat inine is appro ximat mau 13% highe r for peopl e ident ified as Afric an-Am estelle n. Not Available [facility] [address] [place], [address], 07/18/2021 14:53:31 07/17/20 21 07/18/2021 COMPR EHENS ISSAC METAB OLIC PANEL eGFR non-afr. armenian 65 mL/mi n/1.7 3m2 > or = 60 normal Not Available [address], [address], 07/18/2021 14:53:31 07/17/20 21 07/18/2021 COMPR EHENS ISSAC METAB OLIC PANEL eGFR 76 mL/mi n/1.7 3m2 > or = 60 normal Not Available [address], [address], 07/18/2021 14:53:31 07/17/20 21 07/18/2021 COMPR EHENS ISSAC METAB OLIC PANEL chloride 104 mmol/ L 98-110 normal Not Available [address], [address], 07/18/2021 14:53:31 07/17/20 21 07/18/2021 COMPR EHENS ISSAC METAB OLIC PANEL BUN/creatini ne ratio not applic able (calc ) 6-22 Not Available [address], [address], 07/18/2021 14:53:31 07/17/20 21 07/18/2021 COMPR EHENS ISSAC METAB OLIC PANEL sodium 141 mmol/ L 135-14 6 normal Not Available [address], [address], 07/18/2021 14:53:31 07/17/20 21 07/18/2021 COMPR EHENS ISSAC METAB OLIC PANEL potassium 4.6 mmol/ L 3.5-5. 3 normal Not Available [address], [address], 07/18/2021 14:53:31 07/17/20 21 07/18/2021 COMPR EHENS ISSAC METAB OLIC PANEL carbon dioxide 30 mmol/ L 20-32 normal Not Available [address], [address], 07/18/2021 14:53:31 07/17/20 21 07/18/2021 COMPR EHENS ISSAC METAB OLIC PANEL calcium 9.7 mg/dL 8.6-10 .3 normal Not Available [address], [address], 07/18/2021 14:53:31 07/17/20 21 07/18/2021 COMPR EHENS ISSAC METAB OLIC PANEL protein, total 7.4 g/dL 6.1-8. 1 normal Not Available [address], [address], 07/18/2021 14:53:31 07/17/20 21 07/18/2021 COMPR EHENS ISSAC METAB OLIC PANEL albumin 4.7 g/dL 3.6-5. 1 normal Not Available [address], [address], 07/18/2021 14:53:31 07/17/20 21 07/18/2021 COMPR EHENS ISSAC METAB OLIC PANEL globulin 2.7 g/dL_ (calc ) 1.9-3. 7 normal Not Available [address], [address], 07/18/2021 14:53:31 07/17/20 21 07/18/2021 COMPR EHENS ISSAC METAB OLIC PANEL albumin/glob ulin ratio 1.7 (calc ) 1.0-2. 5 normal Not Available [address], [address], 07/18/2021 14:53:31 07/17/20 21 07/18/2021 COMPR EHENS ISSAC METAB OLIC PANEL bilirubin, total 0.7 mg/dL 0.2-1. 2 normal Not Available [address], [address], 07/18/2021 14:53:31 07/17/20 21 07/18/2021 COMPR EHENS ISSAC METAB OLIC PANEL alkaline phosphatase 68 U/L 35-144 normal Not Available [address] [address] [place], [address], 07/18/2021 14:53:31 07/17/20 21 07/18/2021 COMPR EHENS ISSAC METAB OLIC PANEL AST 25 U/L 10-35 normal Not Available [address] [address] [place], [address], 07/18/2021 14:53:31 07/17/20 21 07/18/2021 COMPR EHENS ISSAC METAB OLIC PANEL ALT 38 U/L 9-46 normal Not Available [address] [address] [place], [address], 07/18/2021 14:53:31 07/17/20 21 07/18/2021 HEPAT ITIS PANEL , ACUTE W/REF JOS TO CONFI RMATI ON hepatitis B core antibody (IgM) non-re active non-re active normal Not Available [address] [address] [place], [address], 07/18/2021 14:53:29 07/17/20 21 07/18/2021 HEPAT ITIS PANEL , ACUTE W/REF JOS TO CONFI RMATI ON hepatitis A IgM non-re active non-re active normal For addit ional infor yinka charles e refer to http: //[facility] jossie marie.jose stdia gnost ics.c om/fa q/FAQ (This link is being provi ded for infor angela herr/ lata bass ses only. ) Not Available [address] [address] [place], [address], 07/18/2021 14:53:29 07/17/20 21 07/18/2021 HEPAT ITIS PANEL , ACUTE W/REF JOS TO CONFI RMATI ON hepatitis B surface antigen non-re active non-re active normal Not Available [facility]. [address] [address] [address], [place], [address], 07/18/2021 14:53:29 07/17/20 21 07/18/2021 HEPAT ITIS PANEL , ACUTE W/REF JOS TO CONFI RMATI ON hepatitis C antibody non-re active non-re active normal Not Available [facility] [address] [address] [address], [place], [address], 07/18/2021 14:53:29 07/17/20 21 07/18/2021 HEPAT ITIS PANEL , ACUTE W/REF JOS TO CONFI RMATI ON index 0.02 <1.00 normal HCV antib sahni was non-r eacti ve. There is no labor atory evide nce of HCV infec tion. In most cases , no furth er actio n is requi red. Howev er, if recen t HCV expos ure is suspe cted, a test for HCV RNA (test code 50621 ) is sugge sted. For addit ional infor angela marie pleas e refer to http: //[facility] jossie whitaker stdia gnost ics.c om/fa q/FAQ 22v1 (This link is being provi ded for infor angela herr/ educelo maxwell purpo ses only. ) Not Available [facility] [address] [address] [address], [place], [address], 07/18/2021 14:53:29 07/17/20 21 07/18/2021 LIPID PANEL , STAND ESME cholesterol, total 148 mg/dL <200 normal Not Available [facility] [address] [address] [address], [place], [address], 07/18/2021 14:53:28 07/17/20 21 07/18/2021 LIPID PANEL , STAND ESME HDL cholesterol 35 mg/dL > or = 40 low Not Available [facility] [address] [address] [place], [address], 07/18/2021 14:53:28 07/17/20 21 07/18/2021 LIPID PANEL , STAND ESME triglyceride s 144 mg/dL <150 normal Not Available [facility] [address] [place], [address], 07/18/2021 14:53:28 07/17/20 21 07/18/2021 LIPID PANEL [...] 2061- 2068 (http ://ed ucati on.Qu Omar Clikthrough. com/f aq/FA Q164) Not Available [facility] [address] [place], [address], 07/18/2021 14:53:28 07/17/20 21 07/18/2021 LIPID PANEL , STAND ESME chol/HDLC ratio 4.2 (calc ) <5.0 normal Not Available [facility] [address] [address], [place], [address], 07/18/2021 14:53:28 07/17/20 21 07/18/2021 LIPID PANEL , STAND ESME non HDL cholesterol 113 mg/dL _(kaushik c) <130 normal For patie nts with diabe maya plus 1 major ASCVD risk facto r, treat ing to a non-H DL-C goal of <100 mg/dL (LDL- C of <70 mg/dL ) is consi aded a thera peuti c optio n. Not Available [facility] [address] [place], [address], 07/18/2021 14:53:28 03/24/20 23 03/24/2023 COMPR EHENS ISSAC METAB OLIC PANEL sodium 143 mmol/ L 137-14 5 Not Available [facility] (Lab) [address] [facility] [place] [place], [address], 03/24/2023 12:33:42 03/24/20 23 03/24/2023 COMPR EHENS ISSAC METAB OLIC PANEL potassium 4.4 mmol/ L 3.5-5. 1 Not Available [facility] (Lab) [address] [place], [address], 03/24/2023 12:33:42 03/24/20 23 03/24/2023 COMPR EHENS ISSAC METAB OLIC PANEL chloride 105 mmol/ L 98-107 Not Available [facility] (Lab) [address] [place], [address], 03/24/2023 12:33:42 03/24/20 23 03/24/2023 COMPR EHENS ISSAC METAB OLIC PANEL carbon dioxide 28 mmol/ L 22-30 Not Available [facility] (Lab) [address] [place], [address], 03/24/2023 12:33:42 03/24/20 23 03/24/2023 COMPR EHENS ISSAC METAB OLIC PANEL anion gap 14.4 mmol/ L 14-22 Not Available [facility] (Lab) [address] [place], [address], 03/24/2023 12:33:42 03/24/20 23 03/24/2023 COMPR EHENS ISSAC METAB OLIC PANEL glucose 87 mg/dL 70-99 Not Available [facility] (Lab) [address] [place], [address], 03/24/2023 12:33:42 03/24/20 23 03/24/2023 COMPR EHENS ISSAC METAB OLIC PANEL BUN 18 mg/dL 8-19 Not Available [facility] (Lab) [address] [place], [address], 03/24/2023 12:33:42 03/24/2003/24/2023 COMPR EHENS ISSAC METAB OLIC PANEL creatinine 1.13 mg/dL 0.66-1 .25 Not Available [facility] (Lab) [address] [place], [address], 03/24/2023 12:33:42 03/24/20 23 03/24/2023 COMPR EHENS ISSAC METAB OLIC PANEL GFR >60 Refer ence Range : [place] ge GFR Healt hy Adult : >60 [...] or ethni c subgr oups, such as Hisms nics. Outsi de the valid ated joe [...] the NKF websi te: https ://gwen bird.drew emadows/pr ofess ional s/kdo qi/gf r_cal culat or Not Available [facility] (Lab) [address] [place], [address], 03/24/2023 12:33:42 03/24/2003/24/2023 COMPR EHENS ISSAC METAB OLIC PANEL alkaline phosphatase 74 U/L 38-126 Not Available [facility] (Lab) [address] [place], [address], 03/24/2023 12:33:42 03/24/20 23 03/24/2023 COMPR EHENS ISSAC METAB OLIC PANEL alanine aminotransfe rase 51 U/L 0-50 high Not Available [facility] (Lab) [address] [place], [address], 03/24/2023 12:33:42 03/24/20 23 03/24/2023 COMPR EHENS ISSAC METAB OLIC PANEL aspartate aminotransfe rase 34 U/L 15-46 Not Available [facility] (Lab) [address] [place], [address], 03/24/2023 12:33:42 03/24/20 23 03/24/2023 COMPR EHENS ISSAC METAB OLIC PANEL bilirubin, total 0.80 mg/dL 0.20-1 .30 Not Available [facility] (Lab) [address] [place], [address], 03/24/2023 12:33:42 03/24/20 23 03/24/2023 COMPR EHENS ISSAC METAB OLIC PANEL calcium 9.5 mg/dL 8.4-10 .2 Not Available [facility] (Lab) [address] [place], [address], 03/24/2023 12:33:42 03/24/20 23 03/24/2023 COMPR EHENS ISSAC METAB OLIC PANEL total protein 8.2 g/dL 6.3-8. 2 Not Available [facility] (Lab) [address] [place], [address], 03/24/2023 12:33:42 03/24/20 23 03/24/2023 COMPR EHENS ISSAC METAB OLIC PANEL albumin 4.6 g/dL 3.4-5. 0 Not Available [facility] (Lab) [address] [place], [address], 03/24/2023 12:33:42 03/24/20 23 03/24/2023 COMPR EHENS ISSAC METAB OLIC PANEL globulin 3.6 g/dL 2.6-4. 2 Not Available [facility] (Lab) [address] [place], [address], 03/24/2023 12:33:42 03/24/20 23 03/24/2023 COMPR EHENS ISSAC METAB OLIC PANEL A/G ratio 1.3 ratio 1.0-2. 0 Not Available [facility] (Lab) [address] [place], [address], 03/24/2023 12:33:42 03/24/20 23 03/24/2023 PSA, TOTAL PSA, total 0.85 NG/mL 0.00-4 .00 Not Available [facility] (Lab) [address] [place], [address], 03/24/2023 13:01:53 06/16/2006/16/2023 US, doppl er echoc ardio gram, w/ color flow No observ ation record ed. [address], [place], [address], 06/16/2023 18:43:25 Result Notes None recorded. Problems Name Problem SNOMED Code Status Onset Date Resolution Date Notes Provider Name and Address Organization Details Recorded Time Serous otitis media 79565036 Active 2022 Catrachito Jarvis MD [address], [place], [address], [employer] 3 15:07:50 Nocturia 555553082 Active 2022 Catrachito Jarvis MD [address], [place], [address], [employer] 3 15:10:32 Heart murmur 88753852 Active 2022 Catrachito Jarvis MD [address] [facility], [address] [address], [place], [address], [facility] [place] [facility] 3 14:55:08 Dysfunction of right eustachian tube 4484803496855 101 Active 2022 Catrachito Jarvis MD [address] [facility], [facility] [address], [place], [address], [facility] [place] [facility] 3 14:57:17 Problem Notes None recorded. Medical Equipment None Reported. Allergies Allergen ID Allergen Name Allergen Category Reaction Reaction Severity Criticality Documentation Date Start Date Code Code System Note Provider Name and Address Organization Details Recorded Time 95985 shellfish derived food,medi cation Not available Not available Not available 01/29/2023 21977 UNK Not Available [facility] 3 23:32:08 65926 wheat gluten extract food Not available Not available Not available 01/29/2023 25583 81 RxNorm Not Available [facility] 3 23:32:08 Medications Name Sig Start Date [...] Available Not Available Vitals Date Recorded Body height Body mass index (BMI) Body weight Body temperature Heart rate Oxygen saturation Oxygen saturation in Arterial blood by Pulse oximetry Systolic blood pressure Diastolic blood pressure Provider Name and Address Organization Details Last Updated DateTime 3 182.88 cm 33 kg/m2 989882. 95 g 97.2 [degF] 78 /min 98 % 98 % 160 mm[Hg] 100 mm[Hg] KATHY Perrin [facility] [place] [facility] 3 14:53:32 Date Recorded Body height Body mass index (BMI) Body weight Body temperature Heart rate Oxygen saturation Oxygen saturation in Arterial blood by Pulse oximetry Systolic blood pressure Diastolic blood pressure Provider Name and Address Organization Details Last Updated DateTime 3 182.88 cm 32.4 kg/m2 875112. 58 g 97.9 [degF] 68 /min 98 % 98 % 140 mm[Hg] 100 mm[Hg] KATHY Perrin [place] [facility] 3 14:45:23 Date Recorded Body mass index (BMI) Body height Oxygen saturation Oxygen saturation in Arterial blood by Pulse oximetry Heart rate Body temperature Body weight Systolic blood pressure Diastolic blood pressure Provider Name and Address Organization Details Last Updated DateTime 1 31.2 kg/m2 182.88 cm 97 % 97 % 72 /min 97.5 [degF] 467244. 25 g 136 mm[Hg] 100 mm[Hg] Not Available [facility] 3 23:30:16 Social History Question Answer Notes LastModified by Organizat ion Details LastModified Time Tobacco Smoking Status Never Smoker Not Available [facility] 01/29/2023 23:29:08 In The 14 Days Before Symptom Onset, Have You Had Close Contact With A Laboratory-confirm ed COVID-19 While That Case Was Ill? No [id number] Information not available 01/29/2023 In The 14 Days Before Symptom Onset, Have You Had Close Contact With A Person Who Is Under Investigation For COVID-19 While That Person Was Ill? No [id number] Information not available 01/29/2023 Have You Recently Traveled Abroad? No [id number] Information not available 01/29/2023 Sex: Unknown Functional Status None recorded. Mental Status None recorded. Family History Relationship Description Onset Age of this Age Resolved Age Notes LastModified by Organization Details LastModified Time Father Diabetes mellitus [id number] Not available 01/29/2023 23:29:24 Father Hypertensive disorder [id number] Not available 01/29/2023 23:29:24 Mother Diabetes mellitus [id number] Not available 01/29/2023 23:29:24 Mother Hypertensive disorder [id number] Not available 01/29/2023 23:29:24 Maternal Grandfather Heart disease [id number] Not available 01/29/2023 23:29:24 Medical History Condition [...] SHINGLES N FEMALE PROBLEMS / INFECTIONS N BOWEL PROBLEMS N DEPRESSION (INCLUDING POST ) N STROKE/TIA N THYROID DISEASE N ULCERS [...] INSOMNIA N HIGH CHOLESTEROL / HYPERLIPIDEMIA N EYE PROBLEMS N HYPERTHYROIDISM N EATING DISORDER N EDEMA N CHRONIC PAIN SYNDROME N CONSTIPATION N CAROTID BLOCKAGE N BACK / NECK PROBLEMS N HAVE YOU BEEN HOSPITALIZED OR SEEN IN [facility] IN THE PAST YEAR ? N ATHEROSCLEROSIS [...] DISORDER N ALZHEIMER'S DISEASE N PAIN N DEMENTIA N HERPES N SEIZURES/EPILEPSY N HEADACHES/MIGRAINES N VASCULAR DISEASE N PACEMAKER N DIZZINESS N HEART DISEASE/HEART PROBLEMS N KIDNEY DISEASE N SCARLET FEVER N MULTIPLE SCLEROSIS N DEVELOPMENTAL OR BEHAVIORAL DISORDERS N MENTAL DISORDER/ILLNESS N CANCER: SPECIFY N CARDIAC ARRHYTHMIA N PNEUMONIA N ATRIAL FIBRILLATION N Gall Stones N PULMONARY EMBOLISM N AUTOIMMUNE DISEASE N Past Encounters Encounter ID Performer Location Encounter Start Date Encounter Closed Date Diagnosis/Indication Diagnosis SNOMED-CT Code Diagnosis ICD10 Code Diagnosis Note [id number] Catrachito Jarvis MD [facility] [address] [facility] [address] , [place] [address] 06/28/2021 00:00:00 06/28/2021 21:15:56 [id number] Catrachito Jarvis MD [facility] [address] [facility] [place] [address] 03/20/2023 14:46:47 03/20/2023 15:12:10 Serous otitis media 79284760 H65.91 Valsalva and sudafed and medrol dose pack. Hyperlipid emia screening 299909634 Z13.220 Nocturia 725530345 R35.1 [id number] Catrachito Jarvis MD [facility] [address] [facility] [place] [address] 03/27/2023 14:41:48 03/27/2023 15:04:15 Heart murmur 39976635 R01.1 Dysfunctio n of right eustachian tube 6971429784 108579 H69.91 Adult heal th examination 473802846 Z00.00 Health Concerns Section Related Observation LastModified by Organization Detai ls LastModified Time None Recorded Concern Status LastModified by Organization Details LastModified Time None Recorded Advance Directives Directive None Recorded Payers Encounter Date Sequence Insurance Name Policy Number Policy Bee Covered Member ID Bee Member ID Guarantor Name 03/20/2023 1 [employer] [id number] 3 Michele Judd [id number] Michele Judd 03/27/2023 1 [place] [id number] Michele Judd [id number] Michele Judd Notes Date Note Type Note [...] prerna and this helps. Catrachito Jarvis MD [address] [place] [address], [place], [address], [facility] [place] [facility] 03/20/2023 18:31:39 03/27/2023 text/html Here today for annual physical. UTD with colon cancer screening not due for 6 years. Having clogged feeling of ear. This comes often. Velasquez sob or chest pains. Occasionally will get light headed. Catrachito Jarvis MD [address] [facility] [address], [place], [address], [facility] [employer] [facility] [place] [facility] 03/28/2023 06:22:03
[2025-05-10 17:03] LABS: Alanine Aminotransferase 57 U/L (6-50); Albumin Level 4.8 g/dL (3.5-5.1); Alkaline Phosphatase 82 U/L (38-126); Anion Gap 9 mmol/L (4-12); Aspartate Amino Transferase 103 U/L (17-59); Bilirubin,Total 0.7 mg/dL (0.2-1.3); Blood Urea Nitrogen 12 mg/dL (9-20); Calcium 9.7 mg/dL (8.4-10.2); Carbon Dioxide 30 mmol/L (22-30); Chloride 105 mmol/L (98-107); Cholesterol 130 mg/dL (0-200); Estimated Glomerular Filt Rate 58; Glucose 84 mg/dL (65-110); HDL Direct 33 mg/dL; Potassium 4.5 mmol/L (3.4-5.0); Sodium 144 mmol/L (137-145); Total Protein 8.4 g/dL (6.3-8.2); Triglycerides 128 mg/dL (<150)
[2025-05-10 17:15] LABS: LDL Cholesterol Direct 59 mg/dL
[2025-05-10 17:38] LABS: Hematocrit 48.5 % (42.0-52.0); Hemoglobin 15.8 g/dL (14.0-18.0); Immature Platelet Fraction Pct 15.1 % (0.9-11.2); Mean Corpuscular HGB Conc 32.6 g/dl (32-36); Mean Corpuscular Hemoglobin 31.4 pg (26-34); Mean Corpuscular Volume 96.4 fl (80-100); Mean Platelet Volume 13.4 fl (7.4-10.4); Platelet Count Result 152 k/mm3 (150-375); Red Blood Count 5.03 M/mm3 (4.6-6.20); Red Cell Distribution Width 12.9 % (11.5-14.5); White Blood Count 7.2 K/mm3 (4.5-10.0)
== END 2025-05-10 07:56 | disposition home or self-care (01) ==
LOC: ANHGOSHLAB 07:56
PROVIDERS: PCP Family Medicine; Visit Provider Family Medicine
DX: E66.9 Obesity, unspecified (principal); I10 Essential (primary) hypertension; Z79.899 Other long term (current) drug therapy
CPT/HCPCS: 36415; 80053; 80061; 84443; 85027; 85055